=== PATIENT | female | born 1990 | race Caucasian/White ===

== ENCOUNTER 2019-04-30 19:51 | Inpatient (IN) | payer OTHER ==
[~2019-04-30] VITALS: Ht 175.3 cm; Wt 96.4 kg
[2019-05-02 11:40] VITALS: BP 115/74
== END 2019-05-02 13:10 | disposition home or self-care (01) | DRG 807 ==
LOC: LDIP 19:51 → 2NW 05-01 15:18
PROVIDERS: ADMIT Obstetrics & Gynecology; ATTEND Obstetrics & Gynecology
PROC: 10E0XZZ Delivery of Products of Conception, External Approach (ICD-10-PCS; principal; 2019-05-01)
PROC: 0W8NXZZ Division of Female Perineum, External Approach (ICD-10-PCS; 2019-05-01)
PROC: 3E0R3BZ Introduction of Anesthetic Agent into Spinal Canal, Percutaneous Approach (ICD-10-PCS; 2019-05-01)
PROC: 00HU33Z Insertion of Infusion Device into Spinal Canal, Percutaneous Approach (ICD-10-PCS; 2019-05-01)
DX: O13.4 Gestational [pregnancy-induced] hypertension without significant proteinuria, complicating childbirth (principal); Z37.0 Single live birth; Z3A.40 40 weeks gestation of pregnancy; Z91.030 Bee allergy status; Z91.013 Allergy to seafood
CPT/HCPCS: 36415; J7121; 80053; 80307; 81001; 82248; 84550; 85025; 86850; 86900; G0378; J2405; J2590; J3010; J7120